=== PATIENT | male | born 1950 | race Asian ===

== ENCOUNTER → 2019-09-09 10:22 | Day surgery (SDC) | payer MEDICARE, SELFPAY ==
--- NOTE | 2019-09-10 12:00 | PM.HP ---
Providers/Chief Complaint Chief Complaint: TEST History of Present Illness Juju Manzo is a 69 year old male test date of 09/10/19 at 1200 Medications/Allergies Allergies Allergy/AdvReac Type Severity Reaction Status Date / Time No Known Allergies Allergy Unverified 08/12/19 14:12 PFSH Acute PFSH: Statuses (acute, chronic, etc) shown below reflect problem list status as previously entered and may not be historically accurate Social History (Updated 09/09/19 @ 13:19 by Marie Arriaga) Smoking and tobacco status: current every day smoker Alcohol intake: current Alcohol intake frequency: 3 or more drinks per day Alcohol type: beer Desire information about alcohol rehabilitation?: No Counseling given: No Substance/Drug Use: current Substance/Drug use frequency: daily Substance/Drug use type: Prescription Drug Desire information about substance/drug rehabilitation?: No Counseling given: No Attestations Medical Necessity Statement*: TEST Coding Level of Care Code Acute 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
--- NOTE | 2019-11-14 13:44 | PM.GBL ---
Providers/Reason For Consult Attending Physician: Fela Benavides MD Exam revised Neck/C-Spine Findings - full ROM, no lymphadenopathy, supple, no meningeal signs, no JVD, thyroid normal and no carotid bruits. General - normal visual inspection, trachea not midline, anterior neck swelling, no lymphadenopathy, tender, no torticollis, tracheal deviation and no tracheostomy present. Thyroid - thyroid normal. Lymph Lymphatic - lymphadenopathy noted, lymphedema noted, lymphedema, no lymphedema noted and other. Cardio COMMON NORMALS no JVD Neuro MENINGEAL SIGNS Yes no meningeal signs
--- NOTE | 2019-11-15 15:31 | PM.OBGYHP ---
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: Medical History (Updated 11/15/19 @ 15:38 by Laly Fitzpatrick MD) Agitated ppppppppppppppppppppppppppppppppppppppppppppppppppppppppppppppppppppppppppppppppppppppppppppppppppppppppppppppppppppppppppppppppppppppppppppppppppppppppppppppppppppppppppppppppppppppppppppppppppppppppppppppppppppppppppppppppppppppppppppppppppppppppp pppppppppppppppppppppppppppppppppppppppppppppppppppppppppppppppppppppppppppppppppppppppppppppppppppppppppppppppppppppppppppppppppppppppppppppppppppppppppppppppppppppppppppppppppppppppppppppppppppppppppppppppppppppppppppppppppppppppppppppppppppppppppp pppppppppppppppppppppppppppppppppppppppppppppppppppppppppppppppppppppppppppppppppppppppppppppppppppppppppp ppppppppppppppppppppppppppppppppppppppppppppppppppppppppppppppppppppppppppppppppppppppppppppppppppppppppppppppppppppppppppp Social History (Updated 09/09/19 @ 13:19 by Marie Arriaga) Smoking and tobacco status: current every day smoker Alcohol intake: current Alcohol intake frequency: 3 or more drinks per day Alcohol type: beer Desire information about alcohol rehabilitation?: No Counseling given: No Substance/Drug Use: current Substance/Drug use frequency: daily Substance/Drug use type: Prescription Drug Desire information about substance/drug rehabilitation?: No Counseling given: No Physical Exam Const: COMMON NORMALS: no apparent distress (ppppppppppppppppppppppppppppppppppppppppppppppppppppppppppppppppppppppppppp) ORIENTATION/CONSCIOUSNESS: not awake Coding Level of Care Code Acute 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
--- NOTE | 2019-12-13 14:39 | PM.GBL ---
Pre-Anesthetic test Preop Diagnosis: ooooooooooooooooooooooooooooooooooooooooooooooooooooooooooooooooooooooooooo Preop Diagnosis (free text): I am testing out what this new format will look like. A doctor dictated into a comment query which has a 75 character limit about 300 characters. It has locked the patient chart and caused the same problems as what happened with Sindy patient a while back. Not sure what we are going to do about this. It is a serious problem. Proposed Procedure: Operation Date: 09/09/19 11:35 Proposed Procedures p Bronchoscopy(Not Applicable) - Fela Benavides MD Operation Date: 11/02/19 10:30 Proposed Procedures p Bronchoscopy(Not Applicable) - Fela Benavides MD Operation Date: 12/09/19 08:35 Proposed Procedures p Laparoscopic Appendectomy(Not Applicable) - Benjamin Brown MD Providers/Reason For Consult Attending Physician: Fela Benavides MD Home Medications/Allergies new Home Medications and Allergies Home Medications Medication Instructions Recorded Confirmed Last Taken Type No Known Home Medications 08/12/19 09/09/19 Unknown History Allergies Allergy/AdvReac Type Severity Reaction Status Date / Time No Known Allergies Allergy Unverified 08/12/19 14:12
--- NOTE | 2019-12-13 14:53 | P.PN_ITS ---
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
--- NOTE | 2020-03-21 | USCV_ITS ---
Juju Manzo Age: 69 Gender: M : 1950 Exam Date: 03/21/2020 14:15 Ordering Phys: Akhil Schilling MD Technologist: RICKY LYNCH Exam Location: [facility] – [place] Indication: HISTORY: History of deep venous thrombosis. Patient has ulcers. PROCEDURES: Bilateral duplex Venous Insufficiency study of the Deep and Superficial systems was carried out according to normal protocol with the patient in supine positon for deep system and dependent position for the superficial system. FINDINGS: Examination was technically limited due to body habitus. CONCLUSIONS No prior study for comparison. Vein measurements and reflux times are listed below were applicable. No notable reflux was seen at this time. Negative study. Roman Butts DO (Electronically Signed) Final Date: 26 March 2020 15:44 S
--- NOTE | 2020-03-21 | USCV_ITS ---
Juju Manzo Age: 69 Gender: M : 1950 Exam Date: 03/21/2020 14:30 Ordering Phys: Akhil Schilling MD Technologist: RICKY LYNCH [place] [facility] [place]: RIGHT LEFT LOWER EXTREMITY The Lower Extremity section is not evaluated at this time RIGHT LEFT UPPER EXTREMITY Basilic Cephalic Basilic Cephalic 0.63 0.90 Prox Upper Arm 0.10 0.11 0.45 0.63 Mid Upper Arm 0.12 0.13 0.62 0.53 Dist Upper Arm 0.14 0.15 0.57 0.64 Prox Forearm 0.16 0.17 0.76 0.35 Mid Forearm 0.18 0.19 0.52 0.31 Dist Forearm 0.20 0.21 Findings See measurements listed above. Conclusions All measurements look good. Good caliber vessels in the upper extremity. Roman Butts DO (Electronically Signed) Final Date: 26 March 2020 15:41 S
--- NOTE | 2020-03-21 | USCV_ITS ---
Juju Manzo Age: 69 Gender: M : 1950 Exam Date: 03/21/2020 14:19 Ordering Phys: kAhil Schilling MD Technologist: RICKY LYNCH Exam Location: [facility] – [place] Indication: Aortic Velocity @ SMA (cm/s) 74.8 RIGHT KIDNEY LEFT KIDNEY Velocity (cm/s) Velocity (cm/s) Sys/Harding Sys/Harding Resistive Index Resistive Index 62.4 / 41.6 0.33 Proximal Renal Artery 94.3 / 70.0 0.26 41.6 / 14.6 0.65 Mid Renal Artery 108.1 / 84.6 0.22 14.6 / 11.1 1.76 Distal Renal Artery 103.3 / 81.8 0.21 30.5 / 45.7 0.50 Hilar 112.3 / 91.5 0.19 11.1 / 29.8 1.69 Upper Pole 119.2 / 99.8 0.16 52.7 / 54.8 0.04 Mid Pole 105.3 / 83.9 0.20 74.8 / 54.8 0.27 Lower Pole 119.2 / 89.4 0.25 0.80 Renal Aortic Ratio 1.45 Accleration Index (cm/sec2) 50.00 Hilar 1182.0 0 133.00 Upper Pole 1168.0 0 0.00 Mid Pole 715.00 284.00 Lower Pole 945.00 45.9 Kidney Length (mm) 54.0 FINDINGS See measurements listed above. CONCLUSIONS No prior study for comparison. No sonographic evidence of renal aortic stenosis or aneurysm. Testing renal report. Negative study. Roman Butts DO (Electronically Signed) Final Date: 26 March 2020 15:43 S
--- NOTE | 2020-03-21 | USCV_ITS ---
Juju Manzo Age: 69 Gender: M : 1950 Exam Date: 03/21/2020 14:29 Ordering Phys: Akhil Schilling MD Technologist: RICKY LYNCH [place] [facility] [place]: RIGHT LEFT LOWER EXTREMITY Diameter Diameter (cm) (cm) 0.42 High Thigh 0.36 0.52 Mid Thigh 0.29 0.58 Above Knee 0.52 0.39 Below Knee 0.30 0.50 Mid Calf 0.39 0.40 Ankle 0.47 RIGHT LEFT UPPER EXTREMITY The Upper Extremity section is not evaluated at this time Findings See measurements listed above. Conclusions Good caliber vessels in the lower extremities. Goodenough to use with bypass. Roman Butts DO (Electronically Signed) Final Date: 26 March 2020 15:42 S
--- NOTE | 2020-03-21 | USCV_ITS ---
Test, Juju Age: 69 Gender: M : 1950 Exam Date: 03/21/2020 14:03 Ordering Phys: Akhil Schilling MD Technologist: RICKY LYNCH Exam Location: [facility] [place] Indication: Risk Factors: Smoker Previous Vascular Surgery: Unknown RIGHT LEFT BP: 110.0 / 50.00 BP: 110.0/ 50.00 0 0 Waveform Velocity (cm/s) Velocity (cm/s) Waveform Monophasic 57.5 Iliac Prox 38.1 N/A Biphasic 57.5 Iliac Mid 53.6 Triphasic Triphasic 57.5 Iliac Distal 28.0 Biphasic N/A 37.3 SUBSTANCE ADDICTION COORDINATOR 53.6 Monophasic Monophasic 37.3 SFA Prox 49.7 N/A Biphasic 37.3 SFA Mid 34.2 Triphasic Triphasic SFA Dist Biphasic 56.7 34.2 N/A 51.3 POP 36.5 Monophasic Monophasic 49.7 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 CONCLUSIONS No change seen from prior study. Negative study. Test report. Roman Butts DO (Electronically Signed) Final Date: 26 March 2020 15:48 S
--- NOTE | 2020-03-21 | USCV_ITS ---
Juju Manzo Age: 69 Gender: M : 1950 Exam Date: 03/21/2020 14:07 Ordering Phys: Akhil Schilling MD Technologist: RICKY LYNCH Exam Location[place] [facility] [place]ication: Risk Factors: Smoker Previous Vascular Surgery: None Right BP: 110.00 / 70.00 Left BP: 110.00 / 70.00 RIGHT LEFT PSV PSV (cm/s) (cm/s) Waveform Waveform Monophasic 50.5 Subclavian Proximal 48.2 Monophasic Biphasic 50.5 Subclavian Distal 51.3 Biphasic Triphasic 50.5 Axillary 56.7 Triphasic Monophasic 50.5 Brachial Proximal 51.3 Monophasic Biphasic 50.5 Brachial Mid 56.7 Biphasic Triphasic 50.5 Brachial at AC 38.8 Triphasic Monophasic 34.2 Radial Proximal 36.5 Monophasic Biphasic 34.2 Radial Mid 56.7 Biphasic Triphasic 34.2 Radial at Wrist 38.8 Triphasic Monophasic 32.6 Ulnar Proximal 38.8 Monophasic Biphasic 45.8 Ulnar Mid 38.8 Biphasic Triphasic 30.3 Ulnar at Wrist 38.8 Triphasic 0.0 Radial/Brachial Index 0.0 0.0 Ulnar/Brachial Index 0.0 FINDINGS See measurements listed above. CONCLUSIONS No prior study for comparison. Arterial duplex appears normal. Negative study. Roman Butts DO (Electronically Signed) Final Date: 26 March 2020 15:47 S
--- NOTE | 2020-03-21 | USCV_ITS ---
Juju Manzo Age: 69 Gender: M : 1950 Exam Date: 03/21/2020 14:10 Ordering Phys: Akhil Schilling MD Technologist: RICKY LYNCH Exam Location: [facility] – [place] Indication: BP: 120 / 63 HR: Rhythm: Sinus Technical Quality: Good MEASUREMENTS (Male / Female) Normal Values 2D ECHO LV Diastolic Diameter PLAX 1.6 cm 4.2 - 5.9 / 3.9 - 5.3 cm LV Systolic Diameter PLAX 1.4 cm IVS Diastolic Thickness 1.4 cm 0.6 - 1.0 / 0.6 - 0.9 cm IVS Systolic Thickness 0.8 cm LVPW Diastolic Thickness 2.1 cm 0.6 - 1.0 / 0.6 - 0.9 cm LVPW Systolic Thickness 1.1 cm LVOT Diameter 2.4 cm LV Ejection Fraction 2D Teich 19.7 % LV Ejection Fraction MOD 2C 83.9 % LV Ejection Fraction 2C AL 85.1 % LA Diameter 2.7 cm LA Width 3.4 cm LA Height 2.2 cm RA Width 2.1 cm RA Height 2.8 cm Aorta at Sinotubular Diameter 1.9 cm M-MODE LV Diastolic Diameter MM 1.8 cm 4.2 - 5.9 / 3.9 - 5.3 cm LV Systolic Diameter MM 1.8 cm LV Ejection Fraction MM Teich 0.0 % IVS Diastolic Thickness MM 1.9 cm 0.6 - 1.0 / 0.6 - 0.9 cm IVS Systolic Thickness MM 0.7 cm LVPW Diastolic Thickness MM 1.7 cm 0.6 - 1.0 / 0.6 - 0.9 cm LVPW Systolic Thickness MM 1.6 cm RV Diastolic Diameter MM 1.8 cm Aortic Annulus Diameter 2.4 cm LA Ao Ratio MM 1.6 MV E Point Septal Separation 1.2 cm DOPPLER AV Peak Velocity 69.0 cm/s LVOT Peak Velocity 108.0 cm/s AV Area Cont Eq vti 10.7 cm squared AV Area Cont Eq pk 7.0 cm squared MV Peak Velocity 102.0 cm/s MV Area PHT 3.6 cm squared Mitral E to A Ratio 1.0 MV E' Velocity 58.5 cm/s Mitral E to MV E' Ratio 1.2 Mitral E to LV E' Lateral Ratio 1.2 Mitral E to LV E' Septal Ratio 1.3 TR Peak Velocity 89.1 cm/s TR Peak Gradient 3.2 mmHg TR Mean Velocity 64.1 cm/s TR Mean Gradient 1.9 mmHg TR Velocity Time Integral 27.8 cm TV Peak E Velocity 67.0 cm/s Right Atrial Pressure 3.0 mmHg Pulmonary Artery Systolic Pressu 6.2 mmHg PV Peak Velocity 73.0 cm/s QpQs Shunt Ratio 0.5 RV Acceleration Time 0.3 s RV Ejection Time 0.4 s RV AcT/ET 0.7 FINDINGS Left Ventricle Normal left ventricular size, systolic function and wall thickness, with no regional wall motion abnormalities. Normal left ventricular wall thickness. Normal diastolic filling pattern. Right Ventricle The right ventricle is normal in size and function. Right Atrium The right atrium is normal in size. Left Atrium The left atrium is normal in size. Mitral Valve Structurally normal mitral valve without significant stenosis or prolapse. There is no mitral regurgitation. Aortic Valve Structurally normal aortic valve without significant sclerosis or stenosis. There is no aortic regurgitation. Tricuspid Valve Structurally normal tricuspid valve without significant stenosis or regurgitation. Pulmonary artery systolic pressure is normal. Pulmonic Valve Structurally normal pulmonic valve without significant stenosis. There is no pulmonic regurgitation. Pericardium Normal pericardium without effusion. Aorta Normal ascending aorta dimension. CONCLUSIONS Normal left ventricular size, systolic function and wall thickness, with no regional wall motion abnormalities. The right ventricle is normal in size and function. Transthoracic echo appears normal. Negative study. All good. Roman Butts DO (Electronically Signed) Final Date: 26 March 2020 15:46 S
--- NOTE | 2020-03-26 | USCV_ITS ---
access [id number] Juju Manzo Age: 70 Gender: M : 1950 Exam Date: 03/26/2020 Ordering Phys: Akhil Schilling MD Technologist: Exam Location: Site Location: TEST Indication: Findings Hematoma = Yes. Conclusions There is no prior similiar study for comparison. This is a test. No pseudo-aneurysm. Roman Butts DO (Electronically Signed) Final Date: 26 March 2020 15:38 S
--- NOTE | 2020-03-26 | USCV_ITS ---
[facility] BI TestJuju Age: 70 Gender: M : 1950 Exam Date: 03/26/2020 Ordering Phys: Akhli Schilling MD Technologist: Exam Location: Site Location: TEST Indication: HISTORY: Lower extremity swelling. PROCEDURES: Venous duplex imaging was performed in bilateral lower extremities. The following venous structures were evaluated: common femoral vein, profunda vein, proximal portion of the greater saphenous vein, superficial femoral vein, and the popliteal vein. FINDINGS: No evidence of DVT seen in any vessel visualized at this time. CONCLUSIONS No evidence of DVT seen in any vessel visualized at this time. Roman Butts DO (Electronically Signed) Final Date: 26 March 2020 14:06 S
--- NOTE | 2020-05-09 | XACV_ITS ---
Exam Room: 1 Ht: 165 cm Wt: 91 kg BSA: 2.07 m2 Gender: Male : 1950 Any Known Allergies: Shellfish Exam Priority: Routine Procedure(s): Procedure Description: Diagnostic procedure Procedure Description: Left Heart Catheterization Diagnostic Findings * LAD has 0% stenosis. * CX has 0% stenosis. * RCA has 0% stenosis. * LM: Mild 40% stenosis, moderately calcified, mild proximal segment tortuosity, JÚNIOR: 3 flow. * Coronary angiography shows right dominance. Conclusions 1. There is mild coronary artery disease with one vessel disease. Recommendations * Continue current medical management and risk factor modification. Procedural Details Identified patient by full name and date of as verbalized by the patient/guarantor. Does the consent match the physician's order: Yes. The risks, benefits, and alternatives of sedation and/or procedure were discussed by physician. The patient agrees to continue. Procedure started. Physician notified. right brachial was prepped with chloroprep then draped in the usual sterile fashion. Physician arrived. Physician scrubbed in. I, the attending physician, have reviewed and verified all procedure medications. Yes, all medications given per verbal order History/Risk Factors Hypertension: Yes Dyslipidemia: Yes Peripheral Arterial Disease (PAD): Yes Myocardial Infarction (VA): Yes Obesity: Yes Renal Disease: No Tobacco Use: Current/Recent(w/in 1 year) Prior Interventions PCI: No CABG: No Valve Surgery: Yes Report Signatures Finalized by Dr. Laurence Ochoa MD on 05/09/2020 02:44 PM
== END ==
PROVIDERS: Family Provider Family Medicine; Visit Provider Hospitalist
DX: Z53.21 Procedure and treatment not carried out due to patient leaving prior to being seen by health care provider (principal)
CPT/HCPCS: 12345; 80051; 85007; 85027; 86705; 86706; 86880; 86900; 87340

== ENCOUNTER → 2021-05-09 11:46 | Day surgery (SDC) | payer MEDICARE, SELFPAY ==
[2021-05-14 18:40] VITALS: BP 132/55; PULSE 88; RESP 12; TEMP 37.3; O2SAT 99
[2021-05-14 18:45] VITALS: BP 112/65; PULSE 72; RESP 14; TEMP 36.7; O2SAT 97
[2021-05-14 19:10] VITALS: BP 112/62; PULSE 56; RESP 18; TEMP 36.8; O2SAT 97
[2021-05-14 19:15] VITALS: BP 112/56; PULSE 66; RESP 18; TEMP 36.8; O2SAT 98
[2021-05-14 19:18] VITALS: BP 154/68; PULSE 68; RESP 12; TEMP 36.8; O2SAT 97
[2021-05-14 19:20] VITALS: BP 123/64; PULSE 71; RESP 16; TEMP 36.8; O2SAT 97
== END ==
DX: Z53.20 Procedure and treatment not carried out because of patient's decision for unspecified reasons (principal)
CPT/HCPCS: 85025

== ENCOUNTER → 2022-05-16 07:35 | Outpatient (BNVA) | payer MEDICARE, SELFPAY | PROVIDERS: Family Provider Family Medicine; Visit Provider Thoracic Surgery (Cardiothoracic Vascular Surgery) | DX: Z01.89 Encounter for other specified special examinations (principal) | CPT/HCPCS: 87040 ==